=== PATIENT | male | born 1985 | race Native Hawaiian/Other Pacific Islander ===

== ENCOUNTER 2019-09-19 08:37 | Outpatient (CLI) | payer OTHER | END 2019-09-19 19:29 | disposition home or self-care (01) | LOC: MRI 08:37 | DX: M54.5 Low back pain (principal) ==

== ENCOUNTER 2019-09-23 14:05 | Emergency (ER) | payer OTHER ==
[~2019-09-23] VITALS: Ht 175.3 cm; Wt 105.7 kg
[2019-09-23 14:26] VITALS: TEMP 97.9
[2019-09-23 16:42] VITALS: BP 131/45
== END 2019-09-23 16:42 | disposition home or self-care (01) ==
LOC: ED 14:05
DX: M51.16 Intervertebral disc disorders with radiculopathy, lumbar region (principal)
CPT/HCPCS: 96372; 99282; J1885